=== PATIENT | male | born 1960 | race Caucasian/White ===

== ENCOUNTER 2017-03-21 17:46 | Emergency (ER) | payer MEDICAID ==
[~2017-03-21] VITALS: Ht 172.7 cm; Wt 68.0 kg
[2017-03-21 22:31] VITALS: BP 158/102
== END 2017-03-21 23:18 | disposition home or self-care (01) ==
LOC: EDBD 17:46 → ER 17:46 → UNDOADMIN 17:47 → OVERFLOW 17:47 → ER 23:18
DX: K04.7 Periapical abscess without sinus (principal); K02.9 Dental caries, unspecified; F17.200 Nicotine dependence, unspecified, uncomplicated; E11.9 Type 2 diabetes mellitus without complications

== ENCOUNTER 2018-05-24 12:45 | Inpatient (IN) | payer MEDICAID ==
[~2018-05-24] VITALS: Ht 175.3 cm; Wt 98.5 kg
[2018-05-24] MEDS ORDERED: AZITHROMYCIN 500MG/ 250ML 250 ML IV ONE (15:30)
[2018-05-24] MEDS ORDERED: cefTRIAXone 1GM/50ML D5W 50 ML IV ONE (15:30)
[2018-05-24 15:47] LABS: Basophils # (auto) 0.1 uL; Basophils % (auto) 0.9 % (0.0-2.0); Eosinophils # (auto) 0.2 uL; Eosinophils % (auto) 2.5 % (0.0-7.0); Hematocrit 35.5 % (41.0-53.0); Lymphocytes # (auto) 0.9 uL; Lymphocytes % (auto) 14.4 % (10.0-50.0); Mean Corpuscular Hgb Conc. 33.7 g/dL (32.0-36.0); Mean Corpuscular Volume 97.9 fL (80.0-100.0); Monocytes # (auto) 0.5 uL; Monocytes % (auto) 8.2 % (0.0-12.0); Neutrophils # (auto) 4.5 uL; Platelet Count (auto) 116 10^3/uL (140-450); Red Blood Cells 3.62 10^6/uL (4.5-5.90); Red Cell Distribution Width 16.4 % (11.8-14.3); White Blood Cell 6.1 10^3/uL (4.4-10.8)
[2018-05-24 15:55] LABS: Alanine Aminotransferase 101 U/L (16-61); Albumin 2.2 g/dL (3.4-5.0); Anion Gap 1 (5-15); Aspartate Aminotransferase 80 U/L (15-37); BUN/Creatinine Ratio 17.3; Blood Urea Nitrogen 14 mg/dL (7-18); Calcium 8.5 mg/dL (8.5-10.1); Carbon Dioxide 30 mmol/L (21-32); Chloride 107 mmol/L (98-107); GFR African American 126 mL/min; GFR Non-African American 104 mL/min; Glucose 190 mg/dL (74-106); Potassium 4.4 mmol/L (3.5-5.1); Sodium 138 mmol/L (136-145)
[2018-05-24 15:59] LABS: Alkaline Phosphatase 122 U/L (45-117); Bilirubin, Total 0.6 mg/dL (0.2-1.0); Total Protein 8.6 g/dL (6.4-8.2)
[2018-05-24 16:00] LABS: INR 1.07 (0.9-1.15); Partial Thromboplastin Time 26.8 sec (23.78-33.04); Prothrombin Time 11.4 sec (9.27-12.13)
[2018-05-24] MEDS ORDERED: TEMAZEPAM 15 MG CAP PO PRN (21:30)
[2018-05-24] MEDS ORDERED: DEXTROSE (50%) 50ML SYRG IV PRN (21:30)
[2018-05-24] MEDS ORDERED: ONDANSETRON HCL 4 MG/2 ML VIAL IV PRN (21:30)
[2018-05-24] MEDS ORDERED: cloNIDine HCL 0.1 MG TAB ONE (21:41)
[2018-05-24] MEDS: cloNIDine HCL 0.1 MG TAB PO PRN (21:57)
[2018-05-24] MEDS ORDERED: MORPHINE SULFATE 4 MG/ML SYR/VIAL IV ONE (23:30)
[2018-05-24] MEDS ORDERED: ONDANSETRON HCL 4 MG/2 ML VIAL IV ONE (23:30)
[2018-05-25] MEDS: AMITRIPTYLINE HCL 10 MG TAB PO SCH ×2 (00:50→21:53)
[2018-05-25] MEDS: FAMOTIDINE 20 MG TAB PO SCH ×3 (00:50→21:53)
[2018-05-25] MEDS: cloNIDine HCL 0.1 MG TAB PO PRN ×2 (00:51→03:25)
[2018-05-25] MEDS ORDERED: FUROSEMIDE 20 MG/2 ML VIAL IV ONE (01:00)
[2018-05-25] MEDS ORDERED: ALBUMIN 25% 50 ML IV ONE (01:00)
[2018-05-25] MEDS: ACCU-CHEK COMFORT CURVE STRIP VI SCH ×5 (06:10→23:44)
[2018-05-25] MEDS: InsuLIN REG 1unit/0.01ml Soln (100units/ml) SC SCH ×5 (06:29→23:43)
[2018-05-25] MEDS: SPIRONOLACTONE 25 MG TAB PO SCH ×2 (06:33→18:11)
[2018-05-25 07:13] LABS: Basophils # (auto) 0 uL; Basophils % (auto) 0.8 % (0.0-2.0); Eosinophils # (auto) 0.1 uL; Hematocrit 31.9 % (41.0-53.0); Hemoglobin 10.6 g/dL (13.5-17.5); Lymphocytes # (auto) 1.1 uL; Lymphocytes % (auto) 23.5 % (10.0-50.0); Mean Corpuscular Hemoglobin 32.8 pg (28.0-32.0); Mean Corpuscular Hgb Conc. 33.4 g/dL (32.0-36.0); Mean Corpuscular Volume 98.4 fL (80.0-100.0); Monocytes # (auto) 0.4 uL; Monocytes % (auto) 9.4 % (0.0-12.0); Neutrophils % (auto) 63.3 % (37.0-80.0); Nucleated Red Blood Cells % 0.1 %; Platelet Count (auto) 80 10^3/uL (140-450); Red Blood Cells 3.24 10^6/uL (4.5-5.90); Red Cell Distribution Width 16.7 % (11.8-14.3); White Blood Cell 4.7 10^3/uL (4.4-10.8)
[2018-05-25 07:35] LABS: Albumin 1.8 g/dL (3.4-5.0); BUN/Creatinine Ratio 17.7; Calcium 7.8 mg/dL (8.5-10.1); Potassium 4.5 mmol/L (3.5-5.1)
[2018-05-25 07:38] LABS: Bilirubin, Total 0.5 mg/dL (0.2-1.0); Total Protein 7.1 g/dL (6.4-8.2)
[2018-05-25] MEDS: FUROSEMIDE 20 MG TAB PO SCH (09:07)
[2018-05-25] MEDS: LISINOPRIL 5 MG TAB PO SCH (09:07)
[2018-05-25] MEDS: AZITHROMYCIN 500MG/ 250ML 250 ML IV SCH (09:54)
[2018-05-25] MEDS: cefTRIAXone 1GM/50ML D5W 50 ML IV SCH (09:54)
[2018-05-25] MEDS ORDERED: LACTULOSE 20Gm/30ML SOLN PO ONE (12:00)
[2018-05-25] MEDS ORDERED: cloNIDine HCL 0.1 MG TAB PO PRN (12:15)
[2018-05-25 12:20] LABS: Hepatitis A Ab IgM Negative
[2018-05-25 12:21] LABS: Hepatitis B Core IgM Negative; Hepatitis B Surface Antigen Negative (Negative)
[2018-05-25 12:22] LABS: Hepatitis C Antibody Positive (Negative)
[2018-05-25 17:05] VITALS: BP 164/98
--- NOTE | 2018-05-25 17:32 | NUR ---
Opening Shift Note Assumed care of patient, awake, alert and oriented X4. No S/S of distress/SOB, complains of right shoulder pain, 8/10. IV to right antecubital, 22 gauge, patent and saline locked. Instructed on POC and to call for assist PRN, verbalized understanding. Bed locked, in lowest position, call light within reach, will continue to monitor for changes Q1hr and PRN.
[2018-05-25 17:54] VITALS: BP 164/98
--- NOTE | 2018-05-25 19:20 | NUR ---
Care endorsed to GADIEL Chávez, night nurse.
--- NOTE | 2018-05-25 19:50 | NUR ---
received report from day rn poc reviewed
[2018-05-25 21:30] VITALS: BP 138/86
--- NOTE | 2018-05-25 23:39 | NUR ---
RESTING WITH EYES CLOSED NO C/O DISCOMFORT
[2018-05-26 04:53] VITALS: BP 115/60
[2018-05-26] MEDS: InsuLIN REG 1unit/0.01ml Soln (100units/ml) SC SCH ×4 (06:00→23:39)
[2018-05-26 06:48] LABS: Potassium 4.2 mmol/L (3.5-5.1)
[2018-05-26 06:50] LABS: Basophils # (auto) 0 uL; Basophils % (auto) 1.1 % (0.0-2.0); Eosinophils # (auto) 0.1 uL; Eosinophils % (auto) 2.7 % (0.0-7.0); Hemoglobin 9.8 g/dL (13.5-17.5); Lymphocytes % (auto) 26.6 % (10.0-50.0); Mean Corpuscular Hemoglobin 33.3 pg (28.0-32.0); Mean Corpuscular Hgb Conc. 33.9 g/dL (32.0-36.0); Monocytes # (auto) 0.3 uL; Monocytes % (auto) 7.7 % (0.0-12.0); Neutrophils # (auto) 2.4 uL; Neutrophils % (auto) 61.9 % (37.0-80.0); Nucleated Red Blood Cells % 0.2 %; Platelet Count (auto) 80 10^3/uL (140-450); Red Blood Cells 2.96 10^6/uL (4.5-5.90); Red Cell Distribution Width 16.3 % (11.8-14.3); White Blood Cell 3.9 10^3/uL (4.4-10.8)
[2018-05-26 06:52] LABS: BUN/Creatinine Ratio 21.2; Calcium 7.7 mg/dL (8.5-10.1)
[2018-05-26] MEDS: SPIRONOLACTONE 25 MG TAB PO SCH (07:08)
[2018-05-26] MEDS: ACCU-CHEK COMFORT CURVE STRIP VI SCH ×4 (07:09→23:39)
--- NOTE | 2018-05-26 07:24 | NUR ---
report given to am nurse poc reviewed
--- NOTE | 2018-05-26 08:00 | NUR ---
Opening Shift Note Assumed care of patient, awake, alert and oriented X4. No S/S of distress/SOB, complains of neck pain, 910. IV to left antecubital, 20 gauge, patent and saline locked. Instructed on POC and to call for assist PRN, verbalized understanding. Bed locked, in lowest position, call light within reach, will continue to monitor for changes Q1hr and PRN.
[2018-05-26 08:38] VITALS: BP 141/82
[2018-05-26] MEDS: cefTRIAXone 1GM/50ML D5W 50 ML IV SCH (09:20)
[2018-05-26] MEDS: AZITHROMYCIN 500MG/ 250ML 250 ML IV SCH (09:48)
[2018-05-26] MEDS: LACTULOSE 20Gm/30ML SOLN PO SCH (09:49)
[2018-05-26] MEDS: FUROSEMIDE 20 MG TAB PO SCH (09:49)
[2018-05-26] MEDS: FAMOTIDINE 20 MG TAB PO SCH ×2 (09:49→21:44)
[2018-05-26] MEDS: LISINOPRIL 5 MG TAB PO SCH (09:50)
--- NOTE | 2018-05-26 11:43 | NUR ---
Shayy Shankar at bedside for GI consult.
[2018-05-26 12:56] VITALS: BP 145/97
--- NOTE | 2018-05-26 14:15 | NUR ---
GI Dr Freed at bedside for GI consult, new orders received and followed through. Patient updated on plan of care, verbalized understanding.
[2018-05-26] MEDS ORDERED: IBUP100S11 PO (14:51)
[2018-05-26] MEDS ORDERED: VENL37.588 PO (14:51)
[2018-05-26] MEDS ORDERED: LISI-646 PO (14:51)
[2018-05-26] MEDS ORDERED: CHOL20007 PO (14:51)
[2018-05-26] MEDS ORDERED: CEPH250C PO (14:51)
[2018-05-26] MEDS ORDERED: NAP500T PO (14:51)
[2018-05-26] MEDS ORDERED: AMOX400S53 PO (14:51)
[2018-05-26] MEDS: ALBUMIN 25% 100 ML IV SCH ×2 (14:57→15:05)
[2018-05-26 16:40] VITALS: BP 134/78
--- NOTE | 2018-05-26 19:26 | NUR ---
Care endorsed to GADIEL Diggs, night nurse.
--- NOTE | 2018-05-26 19:40 | NUR ---
assumed care, pt. awake, no c/o pain, no sob.
[2018-05-26] MEDS: AMITRIPTYLINE HCL 10 MG TAB PO SCH (21:43)
[2018-05-26] MEDS: PROPRANOLOL HCL 20 MG TAB PO SCH (21:44)
[2018-05-26 22:00] VITALS: BP 132/83
--- NOTE | 2018-05-26 22:54 | NUR ---
called up hospitalist for pain med. waiting to call back.
[2018-05-27] MEDS ORDERED: MORPHINE SULFATE 4 MG/ML SYR/VIAL IV ONE (00:15)
[2018-05-27] MEDS: PROPRANOLOL HCL 20 MG TAB PO SCH ×2 (05:30→14:47)
[2018-05-27] MEDS: InsuLIN REG 1unit/0.01ml Soln (100units/ml) SC SCH ×3 (05:31→17:51)
[2018-05-27] MEDS: ACCU-CHEK COMFORT CURVE STRIP VI SCH ×3 (05:31→17:51)
[2018-05-27 05:33] VITALS: BP 158/100
[2018-05-27 08:00] VITALS: BP 158/100
[2018-05-27] MEDS: cefTRIAXone 1GM/50ML D5W 50 ML IV SCH (08:27)
[2018-05-27 09:06] VITALS: BP 136/90
[2018-05-27] MEDS ORDERED: SPIRONOLACTONE 25 MG TAB PO SCH (10:00)
[2018-05-27] MEDS ORDERED: FUROSEMIDE 40 MG TAB PO SCH (10:00)
[2018-05-27] MEDS: LACTULOSE 20Gm/30ML SOLN PO SCH (10:37)
[2018-05-27] MEDS: AZITHROMYCIN 500MG/ 250ML 250 ML IV SCH (10:37)
[2018-05-27] MEDS: LISINOPRIL 5 MG TAB PO SCH (10:39)
[2018-05-27] MEDS: FAMOTIDINE 20 MG TAB PO SCH (10:39)
[2018-05-27 13:00] VITALS: BP 135/88
[2018-05-27 16:47] VITALS: BP 147/74
[2018-05-27 17:00] VITALS: BP 136/87
== END 2018-05-27 17:30 | disposition home or self-care (01) ==
LOC: ER 12:45 → OVERFLOW 21:41 → WEST WING 05-25 16:28
PROVIDERS: ADMIT Nurse Practitioner; ATTEND Internal Medicine
PROC: 0W9G3ZZ Drainage of Peritoneal Cavity, Percutaneous Approach (ICD-10-PCS; principal; 2018-05-25)
DX: K74.60 Unspecified cirrhosis of liver (principal); E43 Unspecified severe protein-calorie malnutrition; D61.818 Other pancytopenia; D69.6 Thrombocytopenia, unspecified; I85.00 Esophageal varices without bleeding; E88.09 Other disorders of plasma-protein metabolism, not elsewhere classified; K76.6 Portal hypertension; D64.9 Anemia, unspecified; E11.9 Type 2 diabetes mellitus without complications; Z68.31 Body mass index [BMI] 31.0-31.9, adult; I10 Essential (primary) hypertension; B19.20 Unspecified viral hepatitis C without hepatic coma; F17.210 Nicotine dependence, cigarettes, uncomplicated; R18.8 Other ascites; R14.0 Abdominal distension (gaseous); F10.10 Alcohol abuse, uncomplicated; J98.11 Atelectasis; K57.30 Diverticulosis of large intestine without perforation or abscess without bleeding; K59.00 Constipation, unspecified; Z79.899 Other long term (current) drug therapy; Z88.1 Allergy status to other antibiotic agents
CPT/HCPCS: 10022; 36415; 49083; 71046; 74176; 76700; 76942; 80048; 80053; 80074; 82140; 82962; 83036; 83605; 83880; 83986; 84154; 84484; 85025; 85610; 85730; 87040; 87205; 89051; 93005; 96365; 96367; 96375; G0378; J0696; J1815; J2405; P9047